=== PATIENT | female | born 1980 | race African-American/Black ===

== ENCOUNTER → 2019-12-16 | Emergency (ER) | payer OTHER ==
[~2019-12-16] VITALS: Ht 30.5 cm; Wt 0.5 kg
[~2019-12-16] MED LIST: Bactrim-DS 1 tab ONE; Bactrim-DS 1 tab ORAL ONE
--- NOTE | 2019-12-16 04:52 | Emergency Room Report ---
History of Present Illness General Source: Patient Present Illness HPI This a 39-year-old female who presents with chief complaint of abscess to her right buttock. Onset for the last 3 days. Getting more swollen. Painful to walk. Pain is 9 out of 10. Worse with palpation and walking. Better with lyi ng on her belly. No fever chills but no drainage. Never had this problem before. Patient History Past Medical History: see triage record, old chart reviewed, psych hx Past Surgical History: other Pertinent Family History: none Social History: Denies: smoking, alcohol use Now: No Immunizations: other Reviewed Nursing Documentation: PMH: Agreed; PSxH: Agreed Review of Systems Eye: Denies: eye pain, blurred vision ENT: Denies: ear pain, nose congestion, throat swelling Respiratory: Denies: cough, shortness of breath Cardiovascular: Denies: chest pain, palpitations Gastrointestinal: Denies: abdominal pain, diarrhea, nausea, vomiting Musculoskeletal: Denies: back pain, joint pain Skin: Denies: rash Neurological: Denies: headache, numbness Endocrine: Denies: increased thirst, increased urine Hematologic/Lymphatic: Denies: easy bruising All Other Systems: negative except mentioned in HPI Physical Exam Sp02 EP Interpretation: reviewed, normal General Appearance: well appearing, no apparent distress, alert Head: normocephalic, atraumatic Eyes: bilateral eye PERRL, bilateral eye EOMI ENT: hearing grossly normal, normal pharynx Neck: full range of motion, supple, no meningismus Respiratory: chest non-tender, lungs clear, normal breath sounds Cardiovascular #1: regular rate, rhythm, no murmur Gastrointestinal: normal bowel sounds, non tender, no mass, no organomegaly, no bruit, non-distended Genitourinary: other - Right buttock: There is an indurated area of about 4 cm on the buttock near the gluteal fold. There is erythema. Tender to palpation. No crepitance. Musculoskeletal: back normal, normal range of motion, gait/station normal Psychiatric: mood/affect normal Procedures Incision and Drainage Incision and Drainage : Consent: Verbal Site: Right buttock Blade Size: 11 I & D Procedure: betadine prep, sterile drapes applied, sterile dressing applied, gauze wick placed Wound Location: other - Buttock Anesthesia: 1% Lidocaine Volume Anesthetic (ccs): 5 Patient Tolerated: Well Complications: None Progress Area cleaned with Betadine. Local anesthetic of 1% lidocaine without epinephrine. I made a 2 cm incision. Moderate amount of pus expressed. Locu lated area broken up. Iodoform gauze placed. Dressing done. Patient tolerated she is without any problem. Medical Decision Making Diagnostic Impression: Primary Impression: Abscess of buttock, right ER Course Patient presents with an abscess to the right buttock. There is surrounding cellulitis. Most likely MRSA. No evidence of any necrotizing fasciitis or deep infection. Will discharge home. Patient prescribed Bactrim and Motrin. Status: improved Disposition: HOME, SELF-CARE Condition: Stable Referrals: [facility],REFERR[facility] (PCP) Additional Instructions: Keep wound clean. Clean first with hydroperoxide and apply antibiotic ointment. Follow-up in 2 days for wound check. You can either come back here or see your doctor. Chuck Jansen MD Dec 16, 2019 04:52
== END | disposition home or self-care (01) ==
LOC: EMR 04:44
DX: L02.31 Cutaneous abscess of buttock (principal)
CPT/HCPCS: 10060; Z7502; 99283